=== PATIENT | male | born 1955 | race Caucasian/White ===

== ENCOUNTER 2016-11-28 08:00 | Inpatient (IN) | payer OTHER ==
--- NOTE | ~2016-11-28 | PA ---
Unit #: [id number] #: [id number] Patient: CHIARA ROMO [id number] [place] [address] [id number] MR#: [id number] NAME: CHIARA ROMO ROOM: [facility] Age: 61 Sex: M Admission Date: 11/28/2016 : 1955 Date of Assessment: 11/28/2016 Attending Physician: Adama House M.D. Admitting Physician: Adama House M.D. Primary Care Physician: Primary Care Physician No PSYCHIATRIC ASSESSMENT IDENTIFYING INFORMATION The patient is a 61-year-old white male admitted to the [facility] unit with a history of opioid dependence. INFORMANT(S) Patient. RELIABILITY Good. CHIEF COMPLAINT Heroin. HISTORY OF PRESENT ILLNESS The patient is a 61-year-old white male who reports a long history of opioid dependence secondary to a history of osteoarthritis. He has had shoulder replacement in the past and is scheduled for hip replacement in the next week. The patient reports that his prescribed pain medications have been less than optimally successful in addressing his pain and he has turned to illicitly obtained heroin over the past 7 to 8 months to address his ongoing pain symptoms. The patient reports that he realizes his must discontinue his use of this medication. He has no prior history of chemical dependence use. He does report a history of having spoken with a psychiatrist "in my 20's." Patient lives with his and describes their relationship as a supportive one. He owns a local restaurant. He denies abuse of other psychoactive substances apart from tobacco. PAST PSYCHIATRIC HISTORY As above. FAMILY HISTORY Noncontributory. SOCIAL HISTORY The patient lives with his . He owns a local restaurant. He reports substance use as noted previously and is a smoker. MEDICAL HISTORY Significant for a history of osteoarthritis and hypertension. MEDICATION HISTORY 1. Diclofenac. 2. [place]. Unit #: [id number] #: [id number] Patient: CHIARA ROMO 3. Mupirocin. 4. Lisinopril. 5. Toprol XL. ALLERGIES Amlodipine. MENTAL STATUS EXAM At this time reveals the patient to be a well-developed, well-nourished white male appearing stated age. He appears to be in moderate physical distress related to opiate withdrawal during interview. He is awake, alert and oriented in all spheres. His mood is mildly dysphoric. His affect constricted. Speech is generally relevant and coherent. There are no gross deficits in memory or cognition noted. Intelligence is judged to be in the average range based on fund of knowledge. The patient denies suicidal or homicidal ideation. He denies any psychotic symptoms. His judgement and insight appear to be intact. ASSETS AND LIABILITIES Patient's assets, motivation for change. Liabilities, lack of resources. ADMITTING DIAGNOSES 1. Opioid use disorder. 2. Degenerative disc disease. 3. Status post shoulder replacement. 4. Osteoarthritis. 5. Hypertension. PSYCHIATRIC PLAN/TREATMENT GOALS The patient remains hospitalized for safety and stabilization. Routine detoxification protocol for opioids has been initiated. The patient will participate in appropriate [place] and milieu activities. ESTIMATED LENGTH OF STAY Three to five days. Dictated by... Adama House M.D. LAURA/sandra TD: 11/28/2016 16:19 JOB #: [id number] PSYCHIATRIC ASSESSMENT Page 1 of 1 X Adama House MD X PSYCHIATRIC ASSESSMENT
--- NOTE | ~2016-11-28 | PN ---
Unit #: [id number] #: [id number] Patient: CHIARA ROMO [id number] [facility] [address] [place] [address] [id number] MR#: [id number] NAME: CHIARA ROMO ROOM: 86 Age: 61 Sex: M Admission Date: 11/28/2016 : 1955 Attending Physician: Adama House M.D. Admitting Physician: Adama House M.D. Primary Care Physician: Primary Care Physician No [facility] PROGRESS NOTES DATE 11/29/2016 DISCUSSION The patient appears more comfortable today and is pleasant and cooperative. Should he sustain progress, discharge will likely take place tomorrow. Dictated by... Adama House M.D. CB/sandra TD: 11/29/2016 21:27 JOB #: [id number] [facility] PROGRESS NOTES Page 1 of 1 X Adama House MD X PROGRESS NOTE
--- NOTE | ~2016-11-28 | HP ---
Unit #: [id number] #: [id number] Patient: MICHAEL ROMO [id number] [place] [address] [id number] MR#: [id number] NAME: MICHAEL ROMO ROOM: 86 Age: 61 Sex: M Admission Date: 11/28/2016 : 1955 Attending Physician: Adama House M.D. Admitting Physician: Adama House M.D. Primary Care Physician: Primary Care Physician No HISTORY AND PHYSICAL HISTORY OF PRESENT ILLNESS Michael is a 61 year old admitted to [facility] because of his abuse of opioids. He has been a long time user of pain pills because of multiple surgeries but has recently turned to heroin. PAST MEDICAL HISTORY 1. Long history of opioid abuse to include snorting heroin. 2. Hepatitis C. 3. High blood pressure. 4. History of atrial fibrillation. a. Ablation. PAST SURGICAL HISTORY 1. Right shoulder. 2. Right knee. ALLERGIES Lisinopril (angioedema) SOCIAL HISTORY He uses an E-cigarette. Denies alcohol. Admits to a long history of opioid abuse. FAMILY HISTORY Medically noncontributory. REVIEW OF SYSTEMS CONSTITUTIONAL: No fever or chills. HEENT: Denies any sore throat, ear pain or runny nose. CARDIOVASCULAR: Denies chest pain, irregular heart rhythm or palpitations. CHEST: Denies shortness of breath or cough. No hemoptysis. GASTROINTESTINAL: Denies nausea, vomiting, diarrhea or chronic constipation. ENDOCRINE: Denies history of increased thirst or urination. No recent significant weight loss or gain. GENITOURINARY: Denies dysuria, frequency, or hematuria. SKIN: Denies any rashes. HEMATOLOGIC: Denies history of increased bleeding or bruising. MUSCULOSKELETAL: Denies any hot, swollen joints. No generalized muscle pain. NEUROLOGIC: Denies problems with vision or speech. No frequent, severe headaches. No numbness, tingling or weakness in any extremities. Denies Unit #: [id number] #: [id number] Patient: MICHAEL ROMO loss of bladder or bowel control. CURRENT MEDICATIONS 1. Detox protocol 2. Toprol XL 25 mg q day PHYSICAL EXAMINATION GENERAL: Alert, well-nourished, in no apparent distress. VITAL SIGNS: Blood pressure 150/110, heart rate 62, respirations 16, temperature 98.6. WEIGHT: 180 pounds. HEIGHT: 5'11". SKIN: Warm and dry without rash or lesion. HEENT: Normocephalic. TMs not viewed. Oral and nasal passages clear. Conjunctivae clear. Pupils equal, round and reactive to light and accommodation. Extraocular movements intact. NECK: Supple without lymphadenopathy or thyromegaly. HEART: Regular rate and rhythm without murmur. LUNGS: Clear. ABDOMEN: Soft, nontender. : Not done. EXTREMITIES: No evidence of cyanosis, clubbing or edema. Moves all extremities without focal deficit. NEUROLOGICAL: Grossly within normal limits. Cranial Nerves: II: Visual smith are intact. III, IV AND : Extraocular movements are intact. Pupils are equal, round and reactive to light. V: Facial sensation is grossly normal. VII: Facial movements and expression are normal. VIII: Auditory acuity grossly intact. IX, X: Uvula is midline. Phonation is normal. XI: Patient shrugs shoulders and turns head normally. XII: Tongue protrudes in the midline. Sensory and Motor Function: Sensory and motor sensation is grossly normal. Motor: moves all extremities well. Coordination: Gait is normal. Deep Tendon Reflexes: Intact. IMPRESSION Psychiatric admission RECOMMENDATIONS PSYCHIATRIC: Per psychiatrist. MEDICAL: I see no contraindications to participating in facility's activities. MEDICAL PROGNOSIS Good. MEDICAL CONDITION Stable. Dictated by... Lissa Samuel P.A.-C. for Harish Adames M.D. Unit #: [id number] #: [id number] Patient: MICHAEL ROMO JEAN/oscar TD: 11/28/2016 21:24 JOB #: [id number] HISTORY AND PHYSICAL Page 1 of 1 X Lissa Saumel HISTORY AND PHYSICAL
--- NOTE | ~2016-11-28 | DS ---
Unit #: [id number] #: [id number] Patient: CHIARA ROMO [id number] [facility] [address] [place] [address] [id number] MR#: [id number] NAME: CHIARA ROMO ROOM: [facility] Age: 61 Sex: M Admission Date: 11/28/2016 : 1955 Discharge Date: 11/30/2016 Attending Physician: Adama House M.D. Primary Care Physician: Primary Care Physician No DISCHARGE SUMMARY REASON FOR ADMISSION The patient is a 61-year-old white male admitted with recent onset of heroin use. HOSPITAL COURSE The patient was admitted to the [facility] unit and placed on suicide precautions. He was placed on a routine detoxification protocol for opioids and was continued on Toprol XL, lisinopril and mupirocin ointment. The patient's stay in the hospital is a brief and uneventful one. His detox went smoothly and by 11/30 he requested discharge it was ordered. FINAL DIAGNOSES 1. Opioid use disorder 2. Hypertension 3. History of degenerative joint disease DISPOSITION ON DISCHARGE The patient is discharged on the following medication Toprol XL 25 mg daily for hypertension, lisinopril 20 mg daily for depression, mupirocin ointment applied to affected areas four times daily. No dietary or physical restrictions were placed on the patient at the time of discharge. Followup to take place through the auspices of community mental health resources. The patient's prognosis is considered fair. Dictated by... Adama House M.D. CB/oscar TD: 12/03/2016 21:14 JOB #: [id number] Unit #: [id number] #: [id number] Patient: CHIARA ROMO DISCHARGE SUMMARY Page 1 of 1 X Adama House MD X DISCHARGE SUMMARY
[2016-11-29 12:31] LABS: BASOPHIL% 0.2 % (0-2.5); EOSINOPHIL% 0.2 % (0.0-7.0); HEMATOCRIT 41.5 % (38.0-50.0); HEMOGLOBIN 13.8 gm/dL (13.0-16.0); LYMPHOCYTE# 2.2 X10e3 (1.0-3.5); LYMPHOCYTE% 21.6 % (17.0-45.0); MEAN CELL VOLUME 84.2 FL (83-96); MEAN CORPUSCULAR HGB CONC 33.3 g/dL (30-36); MEAN PLATELET VOLUME 8.7 FL (6.5-11.5); MONOCYTE# 0.7 X10e3 (0-1.0); MONOCYTE% 6.8 % (3.0-12.0); NEUTROPHIL# 7.2 X10e3 (1.5-7.1); NEUTROPHIL% 71.2 % (40-75); PLATELET COUNT 326 X10e3 (140-420); RED BLOOD COUNT 4.94 X10e (3.90-5.60); RED CELL DISTRIBUTION WIDTH 14.4 % (11.0-15.5); WHITE BLOOD COUNT 10.1 X10e3 (4.0-10.5)
[2016-11-29 12:33] LABS: DIFF IND NO
[2016-11-29 12:45] LABS: ALBUMIN SERUM 3.6 g/dL (3.5-5.0); BUN/CREATININE RATIO 12.5; CALCIUM SERUM 9.4 mg/dL (8.4-10.2); CREATININE SERUM 0.8 mg/dL (0.6-1.4); GLOM FILT RATE Estimated 95.1 mL/min (>60); POTASSIUM 4.3 mmol/L (3.5-5.1); PROTEIN TOTAL SERUM 7.7 g/dL (6.0-8.3)
== END 2016-11-30 10:57 | disposition home or self-care (01) | DRG 897 ==
LOC: P1E 11:23
PROVIDERS: Specialist
PROC: HZ2ZZZZ Detoxification Services for Substance Abuse Treatment (ICD-10-PCS; principal; 2016-11-28)
DX: F11.10 Opioid abuse, uncomplicated (principal); I10 Essential (primary) hypertension; F17.210 Nicotine dependence, cigarettes, uncomplicated; M19.90 Unspecified osteoarthritis, unspecified site; Z96.611 Presence of right artificial shoulder joint
CPT/HCPCS: 80053; 85025; 86592